=== PATIENT | female | born 1980 | race Caucasian/White ===

== ENCOUNTER 2016-12-06 19:27 | Emergency (ER) | payer BC ==
--- NOTE | ~2016-12-06 | ER ---
PATIENT'S NAME: JETT ROBBINS [facility] AGE: 36 Y [address] ROOM: [place] [id number] LOCATION: ED ADMIT DATE: 12/06/2016 ER/Outpatient Report DISCHARGE DATE: 12/06/2016 FAMILY PHYSICIAN: Bertha Cha MD ATTENDING PHYSICIAN: Darrel Marie TIME OF ADMISSION: 19:27. TIME SEEN: The patient was seen at 19:40. CHIEF COMPLAINT: This is a 36-year-old female. She was previously healthy. She is in with complaints of pain and swelling on the left side of her face. HISTORY OF PRESENT ILLNESS: She reports that she had a painful tender area just temporal to her left cheek that began 2 to 3 days ago, and has gotten steadily worse with increased swelling. She has pain that radiates across her face and down into her jaw. Pain is worse when she clenches her jaw. PAST MEDICAL HISTORY: Significant for 1. Cystic acne. 2. Migraines. CURRENT MEDICATIONS: See list. REVIEW OF SYSTEMS: She denies any other illnesses. All other systems are negative. SOCIAL HISTORY: She is a non-smoker. PHYSICAL EXAMINATION: GENERAL: Alert and cooperative female, in no acute distress. VITAL SIGNS: Stable. SKIN: Warm and dry. Color is normal. HEAD, EARS, EYES, NOSE, AND THROAT: Revealed tympanic membranes are normal. She did have an area of tenderness and swelling and induration just behind her left cheek. There was no trismus. Pupils are equal, round, and reactive to light. Extraocular movements were intact. Ears, nose, and throat were clear. NECK: Supple. PATIENT'S NAME: JETT ROBBINS [facility] AGE: 36 Y [address] ROOM: [place] [id number] LOCATION: ED ADMIT DATE: 12/06/2016 ER/Outpatient Report DISCHARGE DATE: 12/06/2016 FAMILY PHYSICIAN: Bertha Cha MD ATTENDING PHYSICIAN: Darrel Marie The rest of the exam is unremarkable. ASSESSMENT: Cystic acne with localized soft tissue infection. PLAN: Doxycycline 100 mg twice a day, and follow up with her gis coordinator in two to three days. DARREL MARIE MD JDB/modl /[id number] d: 12/07/16 0211 t: 12/07/16 0542, OUTPATIENT REPORT
== END 2016-12-06 20:39 | disposition disaster alternative care site (69) ==
LOC: GMED 19:27
DX: L70.0 Acne vulgaris (principal); L08.9 Local infection of the skin and subcutaneous tissue, unspecified; Z79.899 Other long term (current) drug therapy; Z98.890 Other specified postprocedural states